=== PATIENT | female | born 1930 | race Caucasian/White ===

== ENCOUNTER 2020-01-25 13:49 | Emergency (ER) | payer MEDICARE, OTHER ==
[~2020-01-25] VITALS: Ht 162.6 cm; Wt 51.7 kg
[~2020-01-25 13:49] MED LIST: CELE200C PO; CHOL500016 PO; FLUT1AER IH; IBUP1TAB12 PO; IBUP200C8 PO; PANT40TA6 PO; POTA10CA PO; PRAV20TA2 PO; PROTEGRA PO; SPIR25TA PO; TRAM50TA PO; UBID100C23 PO; VITA1CAP PO
[2020-01-25 13:59] VITALS: BP 203/84
[2020-01-25] MEDS ORDERED: ULTRAM PO STA (14:03)
[2020-01-25 14:05] VITALS: BP 203/74
[2020-01-25] MEDS ORDERED: TRIPLE ANTIBIOTIC OINTMENT TP ONE (14:05)
[2020-01-25] MEDS ORDERED: ULTRAM ONE (14:09)
[2020-01-25] MEDS ORDERED: ADACEL VIAL IM ONE ×2 (14:09→14:30)
[2020-01-25 14:19] LABS: BASOPHIL % 0.3 % (0.0-0.2); EOSINOPHIL % 0.4 % (0.0-5.0); LYMPHOCYTES # 0.64 10^3/uL1 (1.0-4.8); LYMPHOCYTES % 8.4 % (24.0-44.0); MEAN CORP HGB 32.9 pg (26-34); MONOCYTES # 0.8 10^3/uL (0.3-0.8); MONOCYTES % 10.2 % (5.0-12.0); NEUTROPHIL # 6.1 10^3/uL (1.8-7.7); NEUTROPHILS % 80.6 % (41.0-85.0); PLATELET COUNT 221 10^3/uL (150-400); RED CELL DISTRIBUTION WIDTH 12.6 % (11.5-14.5)
--- NOTE | 2020-01-25 14:24 | NUR ---
WOUND CARE SKIN TEARS TO LEFT WRIST AND LEFT OUTER LOWER LEG CLEANED WITH STNS, APPLIED TRIPLE ANTIBIOTIC OINTMENT, COVERED WITH NONADHESIVE PAD AND SECURED WITH BIOCLUSIVE DRESSING. PT TOLERATED WELL.
--- NOTE | 2020-01-25 14:45 | PCM.EKG ---
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
--- NOTE | 2020-01-25 14:50 | ER.PDOC ---
General Chief Complaint: Trauma Stated Complaint: FALL Time seen by MD: 14:47 Source: patient Exam Limitations: no limitations History of Present Illness Initial Comments Head, face and left wrist injury S/P fall. Occurred: just prior to arrival Where: home Severity: moderate Injuries/Pain Location: head, face, neck, upper extremity Context: Lost Balance Loss of Consciousness: No Loss of Consciousness Associated Symptoms: headache, neck pain Allergies: Coded Allergies: No Known Allergies (Unverified , 08/10/17) MEDS Reported Medications [Protegra] No Conflict Check, 1 CAP PO DAILY24 08/10/17 Tramadol Hcl (TRAMADOL HCL) 50 Mg Tablet, 0.5 TAB PO TID PRN for PAIN, #90 TAB 08/10/17 Cholecalciferol (Vitamin D3) (VITAMIN D3) 5,000 Unit Tablet, 1 TAB PO BID, #30 TAB 08/10/17 Vitamin B Complex (VITAMIN B COMPLEX) 1 Each Capsule, 1 EACH PO DAILY24, CAPSULE 08/10/17 Pravastatin Sodium (PRAVASTATIN SODIUM) 20 Mg Tablet, 1 TAB PO BID, #30 TAB 5 Refills 08/10/17 Pantoprazole Sodium (PANTOPRAZOLE SODIUM) 40 Mg Tablet.dr, 1 TAB PO BID, #30 TAB 3 Refills 08/10/17 Potassium Chloride (POTASSIUM CHLORIDE) 10 Meq Capsule.er, 1 CAP PO BID, #90 CAP 1 Refill 08/10/17 Spironolactone 25MG (ALDACTONE 25MG) 25 Mg Tablet, 0.5 TAB PO DAILY, #90 TAB 1 Refill 08/10/17 Fluticasone/Vilanterol (Breo Ellipta 100-25 Mcg INH) 1 Each Aer.pow.ba, 1 EACH IH DAILY24 08/10/17 Past Medical History Medical History: other Surgical History: hysterectomy, shoulder Family History Significant Family History: no pertinent family hx Social History Alcohol Use: none Drug Use: none Review of Systems Constitutional: no symptoms reported Respiratory: no symptoms reported Cardiovascular: no symptoms reported Gastrointestinal: no symptoms reported Genitourinary: no symptoms reported Musculoskeletal: see HPI Skin: no symptoms reported All Other Systems: Reviewed and Negative Physical Exam General Appearance: No Apparent Distress, WD/WN Head: Contusions (left frontal head), Lacerations (bridge of nose), Swelling (left frontal scalp) Ears, Nose, Mouth, Throat: Hearing Grossly Normal, No Evidence of ENT Injury, No Dental Injury Neck: Tenderness Cardiovascular/Respiratory: Regular Rate, Rhythm, No M/R/G, Normal Peripheral Pulses, No JVD, Normal Breath Sounds, No Respiratory Distress Gastrointestinal: Normal Bowel Sounds, No Organomegaly, No Pulsatile Mass, Non Tender, Soft Back: Normal Inspection, No CVA Tenderness, No Vertebral Tenderness Extremities: Pain With Movement (left wrist), Tenderness (left wrist/distal forearm) Neurologic/Psychiatric: moving consultant II-XII NML as Tested, No Motor/Sensory Deficits, Alert, Normal Mood/Affect, Oriented x 3 Skin: Ecchymosis (left forehead/face), Other (skin tears left wrist) Julian Coma Score Best Eye Response: (4) Open Spontaneously Best Verbal Response: (5) Oriented Best Motor Response: (6) Obeys Commands Results/Orders Results/Orders Orders - KARENA MOMIN MD Neomycin/Bacitracin/Polymyxinb (Triple A (01/25/20 14:05) Cbc With Auto Diff (01/25/20 14:03) Comprehensive Metabolic Panel (01/25/20 14:03) Creatine Kinase (01/25/20 14:03) Creatine Kinase Mb (01/25/20 14:03) PT (01/25/20 14:03) Partial Thromboplastin Time. (01/25/20 14:03) Troponin I (01/25/20 14:03) Ekg-Routine (01/25/20 14:03) Ct Head Wo Contrast (01/25/20 14:03) Ct Cervical Spine (01/25/20 14:03) Ct Facial Bones Wo Contrast (01/25/20 14:03) Xr Wrist Lt (01/25/20 14:03) Tramadol Hcl (Ultram) (01/25/20 14:03) Diph,Pertuss(Acell),Tet Vac/Pf (Adacel V (01/25/20 14:30) Tramadol Hcl (Ultram) (01/25/20 14:09) Diph,Pertuss(Acell),Tet Vac/Pf (Adacel V (01/25/20 14:09) Urinalysis (01/25/20 15:14) Vital Signs Date Time Temp Pulse Resp B/P (MAP) Pulse Ox O2 Delivery O2 Flow Rate FiO2 01/25/20 14:05 98.0 71 20 203/74 (117) 97 Room Air 01/25/20 13:59 98.0 71 20 01/25/20 13:59 98.0 71 20 Administered Medications Medications (Trade) Dose Ordered Sig/Angela Route PRN Reason Start Time Stop Time Status Last Admin Dose Admin Diphtheria/ Tetanus/Acell Pertussis (Adacel Vial) 0.5 ml ONCE ONCE IM 01/25/20 14:30 01/25/20 14:31 DC 01/25/20 14:41 0.5 ML Tramadol HCl (Ultram) 50 mg STAT STAT PO 01/25/20 14:03 01/25/20 14:09 DC 01/25/20 14:41 50 MG Laboratory Tests Test 01/25/20 14:14 01/25/20 14:58 White Blood Count 7.6 10^3/uL (4.5-11.0) Red Blood Count 3.89 10^6/uL (4.00-5.20) L Hemoglobin 12.8 g/dL (12.0-15.0) Hematocrit 38.3 % (36.0-46.0) Mean Corpuscular Volume 98.5 fL (78-100) Mean Corpuscular Hemoglobin 32.9 pg (26-34) Mean Corpuscular Hemoglobin Concent 33.4 g/dL (33-36.5) Red Cell Distribution Width 12.6 % (11.5-14.5) Platelet Count 221 10^3/uL (150-400) Mean Platelet Volume 9.4 fL (7.8-11.0) Neutrophils (%) (Auto) 80.6 % (41.0-85.0) Lymphocytes (%) (Auto) 8.4 % (24.0-44.0) L Monocytes (%) (Auto) 10.2 % (5.0-12.0) Neutrophils # (Auto) 6.1 10^3/uL (1.8-7.7) Lymphocytes # (Auto) 0.64 10^3/uL1 (1.0-4.8) L Monocytes # (Auto) 0.8 10^3/uL (0.3-0.8) Absolute Immature Granulocyte (auto 0.01 10^3 u/L (0-2) Absolute Eosinophils (auto) 0.0 10^3/uL (0.0-0.2) Immature Granulocytes % 0.10 % (0.00-0.50) Eosinophils % 0.4 % (0.0-5.0) Basophils % 0.3 % (0.0-0.2) H Basophils # 0.0 10^3/uL (0.0-0.1) Prothrombin Time 10.8 SEC (9.3-11.3) Prothrombin Time INR (Non-Therap) 1.1 Activated Partial Thromboplast Time 25.6 SEC (24.67-30.72) Sodium Level 133 mmol/L (132-145) Potassium Level 5.5 mmol/L (3.6-5.2) H Chloride Level 99.0 mmol/L (96-109) Carbon Dioxide Level 24.1 mmol/L (20.0-32) Anion Gap 15.4 Blood Urea Nitrogen 33 mg/dL (7-18) H Creatinine 1.19 mg/dL (0.59-1.40) Estimated GFR () 51.7 (>/=60) Est GFR (CKD-EPI)(Non-Afr Micronesian) 42.7 (>/=60) BUN/Creatinine Ratio 27.0 Glucose Level 115 mg/dL (70-110) H Calcium Level 9.2 mg/dL (8.4-10.5) Total Bilirubin 0.3 mg/dL (0.2-1.0) Aspartate Amino Transferase (AST) 23 U/L (0-35) Alanine Aminotransferase (ALT) 20 U/L (12-78) Alkaline Phosphatase 72 U/L (50-136) Total Creatine Kinase 74 U/L (26-192) Creatine Kinase MB 1.7 ng/mL (0.5-3.6) Troponin I < 0.02 ng/mL (0.00-0.05) Total Protein 7.5 g/dL (6.4-8.2) Albumin 4.1 g/dL (3.4-5.0) Globulin 3.4 Albumin/Globulin Ratio 1.205 Urine Collection Type UNKNOWN Urine Color YELLOW (YELLOW) Urine Appearance CLEAR (CLEAR) Urine Bilirubin NEGATIVE MG/DL (NEGATIVE) Urine Ketones NEGATIVE (NEGATIVE) Urine Specific [place] 1.020 (1.005-1.035) Urine pH 6.5 (5.0-6.0) Urine Protein NEGATIVE (NEGATIVE) Urine Urobilinogen NORMAL (NEGATIVE) Urine Nitrate NEGATIVE (NEGATIVE) Urine Leukocyte Esterase NEGATIVE (NEGATIVE) Urine Blood NEGATIVE (NEGATIVE) Urine Glucose NORMAL (NEGATIVE) Progress Progress X rays left wrist: Acute fracture of the distal left radial shaft. 2. DJD of the left wrist. EKG/XRAY/CT/US EKG: NSR, no ST T wave changes EKG Comments: rate:69, normal axis CT Comments: No acute intracranial abnormality, No fracture of CT facial and C spine ER DEPART Departure Time of Disposition: 15:56 Disposition: 01 HOME, SELF-CARE Impression: Primary Impression: Left radial fracture Additional Impressions: Injury of wrist Head injury, acute Contusion of neck Fall Condition: Stable Referrals: KRISTEL MONTOYA MD (PCP) PRIMARY CARE PROVIDER Additional Instructions: Clean wounds daily with soap and water and apply Neosporin Tramadol Ice F/U with Dr. Otero on 01/28/20, call for appointment Return to ED if worsening or concerns Duration or Time Spent with Pa: 60 min Problem Qualifiers Primary Impression: Left radial fracture Encounter type: initial encounter Radius location: shaft Fracture type: closed Fracture morphology: other fracture Qualified Codes: S52.392A - Other fracture of shaft of radius, left arm, initial encounter for closed fracture Additional Impressions: Injury of wrist Encounter type: initial encounter Laterality: left Qualified Codes: S69.92XA - Unspecified injury of left wrist, hand and finger(s), initial encounter Head injury, acute Encounter type: initial encounter Qualified Codes: S09.90XA - Unspecified injury of head, initial encounter Contusion of neck Encounter type: initial encounter Qualified Codes: S10.93XA - Contusion of unspecified part of neck, initial encounter Fall Encounter type: initial encounter Qualified Codes: W19.XXXA - Unspecified fall, initial encounter KARENA MOMIN MD Jan 25, 2020 14:50
--- NOTE | 2020-01-25 14:52 | DIREP ---
PROCEDURE:CT HEAD OR BRAIN W/O CONTRAST COMPARISON:[facility], CT, CT HEAD BRAIN W/O CONTRAST, 11/01/2015, 10:06 PM. INDICATIONS:Pain/injury TECHNIQUE:CT images were created without intravenous contrast. FINDINGS: VENTRICLES: Generalized prominence of the ventricles and extra-axial CSF spaces, commensurate with generalized age-related parenchymal volume loss. CEREBRUM: Generalized age-related parenchymal volume loss. No apparent mass or mass effect. No acute intracranial hemorrhage or abnormal extra-axial fluid collections. [id number] chronic small vessel ischemic demyelination. No CT evidence to suggest acute large vascular territorial ischemia. CEREBELLUM: Unremarkable for the patient's age. BRAINSTEM: Normal. SKULL: Left frontal scalp hematoma. No underlying fracture. SINUSES: No significant paranasal sinus disease OTHER: Intracranial vascular calcifications. CONCLUSION: 1. Senescent changes with generalized age-related parenchymal volume loss and chronic small vessel ischemic demyelination. This is fairly similar to the previous study. No acute intracranial abnormality is identified. 2. Left frontal scalp hematoma. No underlying fracture. Dictated by: Jimmie Dai M.D. On 01/25/2020 at 02:42 PM
[2020-01-25 15:00] VITALS: BP 171/79
--- NOTE | 2020-01-25 15:00 | DIREP ---
PROCEDURE:XRAY WRIST MIN 3VW-LT COMPARISON:None. INDICATIONS:pain/injury FINDINGS: BONES:Oblique fracture through the distal shaft of the ulna. 20% lateral and anterior displacement of the distal fracture fragment. JOINTS:Radiocarpal joint is intact. Faint calcification in the region of the triangular fibrocartilage. DJD of the 1st CMC joint with marked joint space narrowing and marginal osteophyte formation. SOFT TISSUES:Soft tissue swelling of the distal forearm. OTHER:No additional findings. CONCLUSION: 1. Acute fracture of the distal left radial shaft. 2. DJD of the left wrist. Dictated by: Willard Sahu M.D. on 01/25/2020 at 02:57 PM
[2020-01-25 15:08] LABS: ALANINE AMINOTRANSFERASE(ML) 20 U/L (12-78); ALKALINE PHOSPHATASE 72 U/L (50-136); ASPARTATE AMINO TRANSFERASE 23 U/L (0-35); CALCIUM 9.2 mg/dL (8.4-10.5); CARBON DIOXIDE 24.1 mmol/L (20.0-32); GLUCOSE 115 mg/dL (70-110)
--- NOTE | 2020-01-25 15:09 | DIREP ---
PROCEDURE:CT MAXILLOFACIAL W/O CONTRAST COMPARISON:None. INDICATIONS:Pain/injury S/P fall TECHNIQUE:Axial CT images were created without intravenous contrast. Sagittal and coronal reformatted images are provided. FINDINGS: ORBITS:The globe is intact. No extraocular muscle entrapment is identified. No orbital wall fracture is identified. FACIAL BONES:No fracture. NASAL BONES :No fracture MANDIBLE:No fracture. SINUSES:No air fluid level is seen. No mucosal thickening. Surrounding bone structures are intact. SOFT TISSUES:Large area hematoma and soft tissue swelling in the left frontal forehead scalp. New line bilateral cataract surgeries. CONCLUSION: 1. Left frontal forehead scalp injury. 2. No evidence of facial bone fracture. Dictated by: Willard Sahu M.D. on 01/25/2020 at 03:02 PM
--- NOTE | 2020-01-25 15:16 | DIREP ---
PROCEDURE: CT SPINE CERVICAL W/O COMPARISON:[facility], CT, CT SPINE CERVICAL W/O, 11/01/2015, 10:34 PM. INDICATIONS:pain/injury FINDINGS: ALIGNMENT:No traumatic dislocation. Stable grade 1 spondylolisthesis at C4-5 due to degenerative change. VERTEBRAE:No fracture or aggressive osseous lesions. PARASPINAL AREA:Normal. OTHER:Nuchal ligament calcification posterior to the C5 spinous process, not clinically significant. CERVICAL DISC LEVELS Multilevel degenerative disc and joint changes are seen in the cervical spine. Changes include: Multilevel facet arthropathy, including marked facet arthropathy at the bilateral C4-5, C5-6, left C3-4 and right C6-7 levels. New line marked narrowing of the C5-6 disc. Multilevel foraminal stenosis, marked at right C3-4, right C4-5, moderate at left C4-5, and moderate bilateral C5-6 levels. CONCLUSION: 1. No evidence of acute bony injury in the cervical spine. 2. Multilevel degenerative disc and joint changes are noted. Please see above for details. Dictated by: Willard Sahu M.D. on 01/25/2020 at 03:08 PM
[2020-01-25 15:23] LABS: APPEARANCE,URINE CLEAR (CLEAR); BILIRUBIN,URINE NEGATIVE (NEGATIVE); UA COLOR YELLOW (YELLOW); UROBILINOGEN,URINE NORMAL (NEGATIVE)
[2020-01-25 16:10] VITALS: BP 152/77
== END 2020-01-25 16:10 | disposition home or self-care (01) ==
LOC: ER 13:49
DX: S52.392A Other fracture of shaft of radius, left arm, initial encounter for closed fracture (principal); S10.93XA Contusion of unspecified part of neck, initial encounter; Z79.51 Long term (current) use of inhaled steroids; Z79.899 Other long term (current) drug therapy; Z90.710 Acquired absence of both cervix and uterus; W19.XXXA Unspecified fall, initial encounter; Y93.89 Activity, other specified; Y92.098 Other place in other non-institutional residence as the place of occurrence of the external cause; Y99.8 Other external cause status
CPT/HCPCS: 29105; 36415; 70450; 70486; 72125; 80053; 81003; 82550; 82553; 84484; 85025; 85610; 85730; 90471; 90715; 93005; 99285; 73110-LT

== ENCOUNTER → 2020-02-12 | Outpatient (CLI) | payer MEDICARE, OTHER ==
--- NOTE | 2020-02-12 11:06 | DIREP ---
PROCEDURE:XRAY WRIST MIN 3VW-LT COMPARISON:[facility], , XRAY WRIST MIN 3VW-LT, 01/25/2020, 02:09 PM. INDICATIONS:S52.232D Displaced oblique fracture of shaft of left ulna FINDINGS: BONES:Unchanged alignment of the oblique fracture of the distal ulnar diaphysis with minimal radial and anterior displacement of the distal fragment. No significant interval callus formation. JOINTS:Advanced degenerative changes at the 1st carpometacarpal joint. Normal alignment. SOFT TISSUES:Normal. OTHER:Overlying cast partially obscures osseous and soft tissue detail. CONCLUSION: 1. No significant change in appearance of the minimally displaced obliquely oriented distal ulnar shaft fracture. 2. Advanced degenerative changes of the 1st carpometacarpal joint. Dictated by: Ignacio Gorman MD. On 02/12/2020 at 11:02 AM
== END | disposition home or self-care (01) ==
LOC: RAD 10:43
PROVIDERS: ATTEND Orthopaedic Surgery
DX: S52.232D Displaced oblique fracture of shaft of left ulna, subsequent encounter for closed fracture with routine healing (principal); M19.032 Primary osteoarthritis, left wrist; M18.9 Osteoarthritis of first carpometacarpal joint, unspecified; X58.XXXD Exposure to other specified factors, subsequent encounter
CPT/HCPCS: 73110-LT

== ENCOUNTER → 2020-08-26 | Outpatient (CLI) | payer MEDICARE, OTHER ==
[2020-08-26 16:53] LABS: CALCIUM 9.2 mg/dL (8.4-10.5); CARBON DIOXIDE 28.3 mmol/L (20.0-32)
== END | disposition home or self-care (01) ==
LOC: LAB 16:16
PROVIDERS: ATTEND Internal Medicine Cardiovascular Disease
DX: I10 Essential (primary) hypertension (principal)
CPT/HCPCS: 36415; 80048

== ENCOUNTER → 2020-09-10 | Outpatient (CLI) | payer MEDICARE, OTHER ==
--- NOTE | 2020-09-10 11:47 | DIREP ---
PROCEDURE:CT ABDOMEN/PELVIS W + W/O CONTRAST COMPARISON:None. INDICATIONS:R19.7 DIARRHEA TECHNIQUE:Axial images were created through the abdomen and pelvis with and without intravenous contrast material. No oral contrast was administered. Sagittal and coronal reconstructions were performed from source images. FINDINGS: LUNG BASES:Normal. No visible pulmonary or pleural disease. LIVER:Normal. No significant liver lesions are identified. BILIARY:Small calcific density in the posterior lumen or posterior wall of the gallbladder. No extrahepatic biliary ductal dilatation. PANCREAS:Normal. No lesion, fluid collection, ductal dilatation, or atrophy. SPLEEN:Normal. No enlargement or focal lesion. ADRENALS:Normal. No mass or enlargement. URINARY TRACT:Bilateral renal cysts. The largest cyst is in the left kidney, and measures approximately 3.5 cm diameter. No hydronephrosis or solid mass in either kidney. No renal/ureteral calculi. AORTA/VASCULAR:Aortoiliac arterial calcifications. No aneurysm. RETROPERITONEUM:Normal. No mass or adenopathy. BOWEL/MESENTERY:Somewhat limited evaluation due to lack of oral contrast administration. No intestinal obstruction, free air, or free fluid. Multiple colonic diverticula. No evidence of diverticulitis. Mild wall thickening identified in the proximal and distal colon. The the appendix is not identified. No evidence of appendicitis. There is a dense 8 mm calcification in the left upper quadrant, adjacent to the left hepatic lobe. This is of uncertain etiology but likely represents chronic dystrophic calcification from inflammatory process or fat necrosis in the remote past, not clinically significant. ABDOMINAL WALL:Small umbilical and small right inguinal fat containing hernias are probably not clinically significant. PELVIC ORGANS:Hysterectomy. BONES:No acute pathology. Extensive degenerative changes of the spine. Moderate severe levoscoliosis of the lower thoracic and the lumbar spine. Grade 1 spondylolisthesis at L4-5 due to degenerative changes. OTHER:Negative. CONCLUSION: 1. Wall thickening in the colon is of uncertain etiology but may be due to acute gastroenteritis. Multiple colonic diverticula without specific evidence for diverticulitis. 2. Small calcification in the posterior gallbladder lumen or posterior gallbladder wall. Recommend gallbladder ultrasound follow-up to evaluate for possible cholelithiasis. 3. Prior hysterectomy. 4. Please see above discussion for details of other findings. Dictated by: Willard Sahu M.D. on 09/10/2020 at 11:33 AM
== END | disposition home or self-care (01) ==
LOC: RAD 09:29
PROVIDERS: ATTEND Nurse Practitioner Family
DX: K57.30 Diverticulosis of large intestine without perforation or abscess without bleeding (principal); N28.1 Cyst of kidney, acquired; I70.0 Atherosclerosis of aorta; M47.817 Spondylosis without myelopathy or radiculopathy, lumbosacral region; M41.86 Other forms of scoliosis, lumbar region; M43.16 Spondylolisthesis, lumbar region; Z90.710 Acquired absence of both cervix and uterus
CPT/HCPCS: 74178; Q9965

== ENCOUNTER → 2020-09-25 | Outpatient (CLI) | payer MEDICARE, OTHER ==
[2020-09-25 14:45] LABS: CALCIUM 8.2 mg/dL (8.4-10.5); CARBON DIOXIDE 25.5 mmol/L (20.0-32)
== END | disposition home or self-care (01) ==
LOC: LAB 14:14
PROVIDERS: ATTEND Internal Medicine Cardiovascular Disease
DX: I10 Essential (primary) hypertension (principal)
CPT/HCPCS: 36415; 80048